=== PATIENT | male | born 1985 | race Two or more races ===

== ENCOUNTER 2019-05-07 15:45 | Emergency (ER) | payer OTHER ==
[~2019-05-07] VITALS: Ht 175.3 cm; Wt 127.0 kg
[~2019-05-07 15:45] MED LIST: SOLODYN
[2019-05-07] MEDS ORDERED: ZESTRIL10 M1 (16:31)
== END 2019-05-07 20:08 | disposition home or self-care (01) ==
LOC: ER 15:45
DX: J11.1 Influenza due to unidentified influenza virus with other respiratory manifestations (principal)

== ENCOUNTER 2021-01-08 10:18 | Outpatient (CLI) | payer OTHER ==
[~2021-01-08 10:18] MED LIST changes: +ZESTRIL10 M1
== END 2021-01-08 10:19 | disposition home or self-care (01) ==
LOC: LAB 10:18
PROVIDERS: ATTEND Pediatrics Neonatal-Perinatal Medicine
DX: Z03.818 Encounter for observation for suspected exposure to other biological agents ruled out (principal)

== ENCOUNTER 2021-01-11 09:48 | Outpatient (CLI) | payer OTHER | END 2021-01-11 09:54 | disposition home or self-care (01) | LOC: LAB 09:48 | PROVIDERS: ATTEND Pediatrics Neonatal-Perinatal Medicine | DX: Z03.818 Encounter for observation for suspected exposure to other biological agents ruled out (principal) ==

== ENCOUNTER 2021-01-15 10:34 | Outpatient (CLI) | payer OTHER | END 2021-01-15 13:47 | disposition home or self-care (01) | LOC: LAB 10:34 | DX: Z03.818 Encounter for observation for suspected exposure to other biological agents ruled out (principal) ==

== ENCOUNTER 2021-01-18 10:20 | Outpatient (CLI) | payer OTHER | END 2021-01-18 10:26 | disposition home or self-care (01) | LOC: LAB 10:20 | PROVIDERS: ATTEND Pediatrics Neonatal-Perinatal Medicine | DX: R05 Cough (principal); Z03.818 Encounter for observation for suspected exposure to other biological agents ruled out; R06.02 Shortness of breath ==

== ENCOUNTER → 2021-01-22 09:06 | Outpatient (CLI) | payer OTHER | END | disposition home or self-care (01) | LOC: LAB 09:06 | PROVIDERS: ATTEND Pediatrics Neonatal-Perinatal Medicine | DX: Z03.818 Encounter for observation for suspected exposure to other biological agents ruled out (principal) ==

== ENCOUNTER 2021-09-20 16:40 | Emergency (ER) | payer OTHER ==
[~2021-09-20] VITALS: Ht 175.3 cm; Wt 130.6 kg
[2021-09-20] MEDS ORDERED: ZITHROMAX500 MG PO (18:23)
== END 2021-09-20 18:30 | disposition home or self-care (01) ==
LOC: ER 16:40
DX: B34.9 Viral infection, unspecified (principal); J06.9 Acute upper respiratory infection, unspecified; R53.81 Other malaise; I10 Essential (primary) hypertension; Z20.822 Contact with and (suspected) exposure to COVID-19